=== PATIENT | male | born 1980 | race Caucasian/White ===

== ENCOUNTER 2018-12-24 18:25 | Emergency (ER) | payer SELFPAY ==
[2018-12-24] MEDS ORDERED: LIDOCAINE 1% W/EPI 1:100,000 MDV 50 ML VIAL ONE (19:16)
[2018-12-24] MEDS ORDERED: EPINEPHRINE/PF 1 MG/ML AMP ONE (19:16)
--- NOTE | 2018-12-24 20:12 | ER ---
Nurse's Notes [facility] Name: Jeff Redding II Age: 38 yrs Sex: Male : 1980 Arrival Date: 12/24/2018 Time: 18:28 Bed 30 Private MD: Diagnosis: Left buccal space abscess;Periodontal disease;Gingivitis;Dental caries Presentation: 12/24 18:29 Presenting complaint: Patient states: my face started swelling , but i have a tw2 bad tooth, i dont have insurance so i havent go it taken care of, LEFT lower jaw. Transition of care: patient was not received from another setting of care. Onset of symptoms was December 24, 2018. Risk Assessment: Do you want to hurt yourself or someone else? Patient reports no desire to harm self or others. Initial Sepsis Screen: Does the patient meet any 2 criteria? No. Patient's initial sepsis screen is negative. Does the patient have a suspected source of infection? No. Patient's initial sepsis screen is negative. Care prior to arrival: None. 18:29 Method Of Arrival: Ambulatory tw2 18:29 Acuity: ANDREWS 3 tw2 Triage Assessment: 18:30 General: Appears in no apparent distress. slender, Behavior is calm, cooperative, tw2 appropriate for age. Pain: Complains of pain in mouth and left jaw. Historical: - Allergies: 18:31 No Known Allergies; tw2 - Home Meds: 18:31 None [Active]; tw2 - PMHx: 18:31 Migraines; tw2 - PSHx: 18:31 "ecploratory abdominal SX"; Ear Tubes; tw2 - Immunization history:: Adult Immunizations. - Social history:: Smoking status: . - Ebola Screening: : Patient denies travel to an Ebola-affected area in the 21 days before illness onset. Screenin:31 Abuse screen: Denies threats or abuse. Nutritional screening: No deficits noted. ea Tuberculosis screening: No symptoms or risk factors identified. Fall Risk None identified. Assessment: 19:30 General: Appears in no apparent distress. Behavior is calm, cooperative, appropriate ea for age. Pain: Complains of pain in left jaw. Neuro: Level of Consciousness is awake, alert, obeys commands, Oriented to person, place, time. Cardiovascular: Patient's skin is warm and dry. Respiratory: Airway is patent Respiratory effort is even, unlabored, Respiratory pattern is regular, symmetrical. Derm: Skin is pink, warm \\T\\ dry. 20:14 Reassessment: Patient appears in no apparent distress at this time. Patient is alert, ca1 oriented x 3, equal unlabored respirations, skin warm/dry/pink. Vital Signs: 18:30 BP 134 / 78; Pulse 82; Resp 17; Temp 98.0(TE); Pulse Ox 99% ; Weight 81.65 kg (R); tw2 Height 6 ft. 5 in. (195.58 cm); Pain 4/10; 19:29 BP 120 / 73; Pulse 73; Resp 18; Pulse Ox 100% ; ea 20:14 BP 115 / 71; Pulse 76; Resp 18; Temp 97.5(A); Pulse Ox 100% ; ca1 18:30 Body Mass Index 21.34 (81.65 kg, 195.58 cm) tw2 ED Course: 18:28 Patient arrived in ED. rg4 18:30 Triage completed. tw2 18:30 Arm band placed on. tw2 18:33 Girish Dias, FLORIN is Primary Nurse. ae4 18:51 Sundeep Saxena MD is Attending Physician. ss 19:31 Patient has correct armband on for positive identification. Bed in low position. Call ea light in reach. 19:48 Assist provider with I \\T\\ D: of an abscess on left lower gums Set up I\\T\\D tray. Performed ca 1 by Sundeep Saxena MD Patient tolerated well. 20:21 Patient did not have IV access during this emergency room visit. ca1 Administered Medications: No medications were administered Outcome: 20:11 Discharge ordered by . ps1 20:21 Discharged to home ambulatory, Pt will be picked up from the lobby by mother ca1 20:21 Condition: stable 20:21 Discharge instructions given to patient, Instructed on discharge instructions, follow up and referral plans. medication usage, Demonstrated understanding of instructions, follow-up care, medications, Prescriptions given X 4. 20:22 Patient left the ED. ca1 Signatures: Linnette Vogel RN RN ss Regine Black RN RN tw2 Pily Carpenter rg4 Tequila Bull RN RN ea Singer, Phillip, MD MD ps1 Meri Queen RN RN ca1 Girish Dias, RN RN ae4
--- NOTE | 2018-12-24 20:12 | EDPHYS ---
Physician Documentation [facility] Name: Jeff Redding II Age: 38 yrs Sex: Male : 1980 Arrival Date: 12/24/2018 Time: 18:28 Bed 30 Private MD: ED Physician Sundeep Saxena HPI: 12/24 19:18 This 38 yrs old Male presents to ER via Ambulatory with complaints of Facial ps1 Swelling. 19:18 Patient is c/o left facial swelling that started . States that he had 2 ps1 clindamycin pills left from a previous rx and took them and then 48 hours later the swelling got worse. Patient has been seen and evaluated for same previously. No trismus. Tolerating secretions. Moderate swelling. No drainage up to this point. Patient now informed of local community dentist. . Historical: - Allergies: 18:31 No Known Allergies; tw2 - Home Meds: 18:31 None [Active]; tw2 - PMHx: 18:31 Migraines; tw2 - PSHx: 18:31 "ecploratory abdominal SX"; Ear Tubes; tw2 - Immunization history:: Adult Immunizations. - Social history:: Smoking status: . - Ebola Screening: : Patient denies travel to an Ebola-affected area in the 21 days before illness onset. ROS: 19:18 Constitutional: Negative for fever, chills, and weight loss, Eyes: Negative for injury, ps1 pain, redness, and discharge, Cardiovascular: Negative for chest pain, palpitations, and edema, Respiratory: Negative for shortness of breath, cough, wheezing, and pleuritic chest pain, Abdomen/GI: Negative for abdominal pain, nausea, vomiting, diarrhea, and constipation, MS/Extremity: Negative for injury and deformity, Skin: Negative for injury, rash, and discoloration, Neuro: Negative for headache, weakness, numbness, tingling, and seizure. 19:18 ENT: Positive for dental pain, Gum pain Teeth pain Exam: 19:18 Constitutional: This is a well developed, well nourished patient who is awake, alert, ps1 and in no acute distress. Head/Face: Normocephalic, atraumatic. Eyes: Pupils equal round and reactive to light, extra-ocular motions intact. Lids and lashes normal. Conjunctiva and sclera are non-icteric and not injected. Chest/axilla: Normal chest wall appearance and motion. Nontender with no deformity. No lesions are appreciated. Cardiovascular: Regular rate and rhythm. No gallops, murmurs, or rubs. Normal PMI, no JVD. No pulse deficits. Respiratory: Lungs have equal breath sounds bilaterally, clear to auscultation and percussion. No rales, rhonchi or wheezes noted. No increased work of breathing, no retractions or nasal flaring. Abdomen/GI: Soft, non-tender, with normal bowel sounds. No distension or tympany. No guarding or rebound. No evidence of tenderness throughout. MS/ Extremity: Pulses equal, no cyanosis. Neurovascular intact. Full, normal range of motion. Neuro: Awake and alert, GCS 15, oriented to person, place, time, and situation. Cranial nerves II-XII grossly intact. Sensory grossly intact. Psych: Awake, alert, with orientation to person, place and time. Behavior, mood, and affect are within normal limits. 19:18 ENT: External ear(s): are unremarkable, Nose: is normal, Mouth: Gums: swollen, on the lower left first molar, lower left second bicuspid and lower left first bicuspid. Vital Signs: 18:30 BP 134 / 78; Pulse 82; Resp 17; Temp 98.0(TE); Pulse Ox 99% ; Weight 81.65 kg (R); tw2 Height 6 ft. 5 in. (195.58 cm); Pain 4/10; 19:29 BP 120 / 73; Pulse 73; Resp 18; Pulse Ox 100% ; ea 20:14 BP 115 / 71; Pulse 76; Resp 18; Temp 97.5(A); Pulse Ox 100% ; ca1 18:30 Body Mass Index 21.34 (81.65 kg, 195.58 cm) tw2 Procedures: 20:08 I \\T\\ D: Incision and drainage was performed for an abscess of the left lower left second ps1 bicuspid Anesthetized with IA block, lingual, long buccal. 1% lidocaine with epi. 0.5 marcaine 4ML. Incised with #11 blade. Drained moderate amount purulent fluid. the patient tolerated the procedure well. MDM: 19:05 Patient medically screened. ps1 20:08 Data reviewed: vital signs, nurses notes, and as a result, I will discharge patient. ps1 Counseling: I had a detailed discussion with the patient and/or guardian regarding: the historical points, exam findings, and any diagnostic results supporting the discharge/admit diagnosis, the need for outpatient follow up, a dentist, to return to the emergency department if symptoms worsen or persist or if there are any questions or concerns that arise at home. Administered Medications: No medications were administered Disposition: 12/24/18 20:11 Discharged to Home. Impression: Left buccal space abscess, Periodontal disease, Gingivitis, Dental caries. - Condition is Stable. - Discharge Instructions: Dental Abscess. - Prescriptions for chlorhexidine gluconate 0.12 % Mucous Membrane mouthwash - place 15 milliliter by MUCOUS MEMBRANE route 2 times per day for 14 days after brushing teeth, swish in mouth for 30 seconds then spit out; 1 bottle. Clindamycin HCl 300 mg Oral Capsule - take 1 capsule by ORAL route every 6 hours for 10 days; 40 capsule. Tylenol- Codeine #3 300-30 mg Oral Tablet - take 2 tablet by ORAL route every 6 hours As needed; 30 tablet. Zofran 4 mg Oral Tablet - take 1 tablet by ORAL route every 12 hours As needed; 20 tablet. - Medication Reconciliation Form, Thank You Letter, Antibiotic Education, Prescription Opioid Use form. - Follow up: Emergency Department; When: As needed; Reason: Fever > 102 F, Worsening of condition. Follow up: Private Physician; When: As needed; Reason: Further diagnostic work-up, Recheck today's complaints, Continuance of care, Re-evaluation by your physician. - Problem is new. - Symptoms have improved. Signatures: Regine Black RN RN tw2 Sundeep Saxena MD MD ps1 Meri Queen RN RN ca1 Corrections: (The following items were deleted from the chart) 20:22 20:11 12/24/2018 20:11 Discharged to Home. Impression: Left buccal space abscess; ca1 Periodontal disease; Gingivitis; Dental caries. Condition is Stable. Forms are Medication Reconciliation Form, Thank You Letter, Antibiotic Education, Prescription Opioid Use. Follow up: Emergency Department; When: As needed; Reason: Fever > 102 F, Worsening of condition. Follow up: Private Physician; When: As needed; Reason: Further diagnostic work-up, Recheck today's complaints, Continuance of care, Re-evaluation by your physician. Problem is new. Symptoms have improved. ps1
== END 2018-12-24 20:22 | disposition home or self-care (01) ==
LOC: ER 18:25
DX: K12.2 Cellulitis and abscess of mouth (principal); K05.6 Periodontal disease, unspecified; K05.10 Chronic gingivitis, plaque induced; K02.9 Dental caries, unspecified
CPT/HCPCS: 99283; J0171

== ENCOUNTER 2019-01-11 13:00 | Emergency (ER) | payer SELFPAY ==
[2019-01-11 13:56] LABS: Absolute Lymphocytes (CBC) 1.1 K/uL (0.7-4.9); Basophils % 0.4 % (0-1.3); Eosinophils % 5.9 % (0-4.4); Hematocrit 45.8 % (39.6-49.0); Lymphocytes % 16.9 % (15.3-44.8); MPV 7.8 fL (7.6-11.3); Monocytes % 6.2 % (3.3-12.3); RBC Red Blood Cell Count 4.74 M/uL (4.33-5.43)
[2019-01-11 14:06] LABS: Albumin 4.3 g/dL (3.4-5.0); Bilirubin Direct 0.1 mg/dL (0-0.2); Bilirubin Total 0.5 mg/dL (0.2-1.0); Potassium 4.1 mmol/L (3.5-5.1)
--- NOTE | 2019-01-11 15:30 | RAD REPORT ---
EXAM DESCRIPTION: CT - Abdomen Pelvis W Contrast - 01/11/2019 2:55 pm CLINICAL HISTORY: Abdominal pain. Right flank pain COMPARISON: None. TECHNIQUE: Computed axial tomography of the abdomen and pelvis was obtained. 100 cc Isovue-300 is ad ministered intravenously. Oral contrast was given. All CT scans are performed using dose optimization technique as appropriate and may include automated exposure control or mA/KV adjustment according to patient size. FINDINGS: A 1 millimeter nonobstructing right renal calculus The liver, spleen, pancreas, adrenals and left kidney appear unremarkable. The appendix is normal caliber. There is no evidence of diverticulitis IMPRESSION: A 1 millimeter nonobstructing right renal calculus
--- NOTE | 2019-01-11 15:34 | EDPHYS ---
Physician Documentation [facility] Name: Jeff Redding II Age: 38 yrs Sex: Male : 1980 Arrival Date: 01/11/2019 Time: 13:01 Bed 30 Private MD: ED Physician Zelalem Cohen HPI: 01/11 13:27 This 38 yrs old Male presents to ER via Unassigned with complaints of kb Abdominal Pain, Back Pain. 13:27 The patient presents with abdominal pain right lower quadrant. Onset: The kb symptoms/episode began/occurred yesterday. The symptoms radiate to Associated signs and symptoms: Pertinent positives: diarrhea, Pertinent negatives: nausea and vomiting, fever. The symptoms are described as constant. Modifying factors: The symptoms are alleviated by nothing, the symptoms are aggravated by nothing. Severity of pain: At its worst the pain was moderate in the emergency department the pain is unchanged. The patient has not experienced similar symptoms in the past. The patient has not recently seen a physician. Historical: - Allergies: 13:06 No Known Allergies; aj - PMHx: 13:40 Migraines; ca1 - PSHx: 13:40 "ecploratory abdominal SX"; Ear Tubes; ca1 - Immunization history:: Adult Immunizations up to date. - Social history:: Smoking status: Patient/guardian denies using tobacco. - Ebola Screening: : Patient negative for fever greater than or equal to 101.5 degrees Fahrenheit, and additional compatible Ebola Virus Disease symptoms Patient denies exposure to infectious person Patient denies travel to an Ebola-affected area in the 21 days before illness onset. ROS: 13:26 Constitutional: Negative for fever, chills, and weight loss, Cardiovascular: Negative kb for chest pain, palpitations, and edema, Respiratory: Negative for shortness of breath, cough, wheezing, and pleuritic chest pain, Back: Negative for injury and pain, : Negative for injury, bleeding, discharge, and swelling, MS/Extremity: Negative for injury and deformity, Skin: Negative for injury, rash, and discoloration, Neuro: Negative for headache, weakness, numbness, tingling, and seizure. 13:26 Abdomen/GI: Positive for abdominal pain, diarrhea, Negative for nausea and vomiting. Exam: 13:26 Constitutional: This is a well developed, well nourished patient who is awake, alert, kb and in no acute distress. Head/Face: Normocephalic, atraumatic. Neck: Trachea midline, no thyromegaly or masses palpated, and no cervical lymphadenopathy. Supple, full range of motion without nuchal rigidity, or vertebral point tenderness. No Meningismus. Chest/axilla: Normal chest wall appearance and motion. Nontender with no deformity. No lesions are appreciated. Cardiovascular: Regular rate and rhythm with a normal S1 and S2. No gallops, murmurs, or rubs. Normal PMI, no JVD. No pulse deficits. Respiratory: Lungs have equal breath sounds bilaterally, clear to auscultation and percussion. No rales, rhonchi or wheezes noted. No increased work of breathing, no retractions or nasal flaring. Back: No spinal tenderness. No costovertebral tenderness. Full range of motion. Skin: Warm, dry with normal turgor. Normal color with no rashes, no lesions, and no evidence of cellulitis. MS/ Extremity: Pulses equal, no cyanosis. Neurovascular intact. Full, normal range of motion. Neuro: Awake and alert, GCS 15, oriented to person, place, time, and situation. Cranial nerves II-XII grossly intact. Motor strength 5/5 in all extremities. Sensory grossly intact. Cerebellar exam normal. Normal gait. 13:26 Abdomen/GI: Inspection: abdomen appears normal, Bowel sounds: normal, in all quadrants, Palpation: soft, in all quadrants, mild abdominal tenderness, in the right upper quadrant, moderate abdominal tenderness, in the right lower quadrant. Vital Signs: 13:06 BP 105 / 69; Pulse 91; Resp 18; Temp 99.0; Pulse Ox 96% on R/A; Weight 77.11 kg; Height aj 6 ft. 5 in. (195.58 cm); 14:15 BP 113 / 76; Pulse 60; Resp 17; Pulse Ox 98% on R/A; ca1 15:07 BP 118 / 80; Pulse 68; Resp 19 S; Pulse Ox 98% on R/A; ca1 15:40 BP 114 / 76; Pulse 62; Resp 16; Temp 98.7(O); Pulse Ox 99% on R/A; ca1 13:06 Body Mass Index 20.16 (77.11 kg, 195.58 cm) cheryl MDM: 13:08 Patient medically screened. kb 13:27 Data reviewed: vital signs, nurses notes. Data interpreted: Pulse oximetry: on room air kb is 96 %. Interpretation: normal. 15:32 Counseling: I had a detailed discussion with the patient and/or guardian regarding: the kb historical points, exam findings, and any diagnostic results supporting the discharge/admit diagnosis, lab results, radiology results, the need for outpatient follow up, a urologist, to return to the emergency department if symptoms worsen or persist or if there are any questions or concerns that arise at home. 01/11 13:16 Order name: Basic Metabolic Panel; Complete Time: 14:11 kb 01/11 13:16 Order name: CBC with Diff; Complete Time: 14:03 kb 01/11 13:16 Order name: Hepatic Function; Complete Time: 14:11 kb 01/11 13:16 Order name: Lipase; Complete Time: 14:11 kb 01/11 13:16 Order name: IV Saline Lock; Complete Time: 13:30 kb 01/11 13:16 Order name: CT Abd/Pelvis - PO and IV Contrast; Complete Time: 15:32 kb 01/11 13:16 Order name: Labs collected and sent; Complete Time: 13:31 kb Administered Medications: No medications were administered Disposition: 17:18 Co-signature as Attending Physician, Zelalem Cohen MD I agree with the assessment and kdr plan of care. Disposition: 01/11/19 15:33 Discharged to Home. Impression: Lower abdominal pain, unspecified, Calculus of kidney. - Condition is Stable. - Discharge Instructions: Kidney Stones, [id number], Abdominal Pain, Adult, [id number]. - Prescriptions for Diclofenac Sodium 75 mg Oral Tablet, Delayed Release (E.C.) - take 1 tablet by ORAL route 2 times per day As needed; 30 tablet. - Medication Reconciliation Form, Thank You Letter, Antibiotic Education, Prescription Opioid Use, Work release form form. - Follow up: Emergency Department; When: As needed; Reason: Worsening of condition. Follow up: Private Physician; When: 2 - 3 days; Reason: Recheck today's complaints, Continuance of care, Re-evaluation by your physician. Signatures: Dispatcher [employer] Cathy Gama, BINDERY LIBRARY TECHNICAL ASSISTANT-C BINDERY LIBRARY TECHNICAL ASSISTANT-Domitila Mejia RN RN Zelalem Cleary MD MD kdr Meri Queen RN RN ca1 Corrections: (The following items were deleted from the chart) 15:44 15:33 01/11/2019 15:33 Discharged to Home. Impression: Lower abdominal pain, ca1 unspecified; Calculus of kidney. Condition is Stable. Forms are Medication Reconciliation Form, Thank You Letter, Antibiotic Education, Prescription Opioid Use. Follow up: Emergency Department; When: As needed; Reason: Worsening of condition. Follow up: Private Physician; When: 2 - 3 days; Reason: Recheck today's complaints, Continuance of care, Re-evaluation by your physician. kb
--- NOTE | 2019-01-11 15:34 | ER ---
Nurse's Notes [facility] Name: Jeff Redding II Age: 38 yrs Sex: Male : 1980 Arrival Date: 01/11/2019 Time: 13:01 Bed 30 Private MD: Diagnosis: Lower abdominal pain, unspecified;Calculus of kidney Presentation: 01/11 13:05 Presenting complaint: Patient states: Right flank pain that radiates to back for 2 aj days. Care prior to arrival: None. 13:05 Acuity: ANDREWS 3 aj 13:15 Risk Assessment: Do you want to hurt yourself or someone else? Patient reports no ca1 desire to harm self or others. 13:15 Transition of care: patient was not received from another setting of care. Onset of ca1 symptoms was January 11, 2019. Initial Sepsis Screen: Does the patient meet any 2 criteria? No. Patient's initial sepsis screen is negative. Does the patient have a suspected source of infection? No. Patient's initial sepsis screen is negative. 13:15 Method Of Arrival: Ambulatory ca1 Triage Assessment: 13:06 General: Appears in no apparent distress. comfortable, Behavior is calm, cooperative, aj appropriate for age. Pain: Complains of pain in low back area, mid back area and posterior aspect of right lateral abdomen. Neuro: Level of Consciousness is awake, alert, obeys commands, Oriented to person, place, time, situation, Appropriate for age. Respiratory: Airway is patent Respiratory effort is even, unlabored, Respiratory pattern is regular, symmetrical. GI: Abdomen is flat, non-distended. : Reports pain in right flank(s), in lower back. Historical: - Allergies: 13:06 No Known Allergies; aj - PMHx: 13:40 Migraines; ca1 - PSHx: 13:40 "ecploratory abdominal SX"; Ear Tubes; ca1 - Immunization history:: Adult Immunizations up to date. - Social history:: Smoking status: Patient/guardian denies using tobacco. - Ebola Screening: : Patient negative for fever greater than or equal to 101.5 degrees Fahrenheit, and additional compatible Ebola Virus Disease symptoms Patient denies exposure to infectious person Patient denies travel to an Ebola-affected area in the 21 days before illness onset. Screenin:15 Abuse screen: Denies threats or abuse. Denies injuries from another. Nutritional ca1 screening: No deficits noted. Tuberculosis screening: No symptoms or risk factors identified. Fall Risk IV access (20 points). Assessment: 13:15 General: Appears in no apparent distress. comfortable, Behavior is calm, cooperative, ca1 appropriate for age. Pain: Complains of pain in right lower quadrant and right upper quadrant and posterior aspect of right lateral abdomen Pain radiates to back and mid back area and low back area Pain currently is 4 out of 10 on a pain scale. Quality of pain is described as sharp, Pain began 1 day ago. Is intermittent. Neuro: Level of Consciousness is awake, alert, obeys commands, Oriented to person, place, time, situation. Cardiovascular: Heart tones S1 S2 present Capillary refill < 3 seconds Patient's skin is warm and dry. Respiratory: Airway is patent Respiratory effort is even, unlabored, Respiratory pattern is regular, symmetrical, Breath sounds are clear bilaterally. GI: Abdomen is flat, non-distended, Bowel sounds present X 4 quads. Abd is soft X 4 quads Abdomen is tender to palpation in right lower quadrant and left lower quadrant. GI: Reports diarrhea, since 4 DAYS AGO. : No deficits noted. No signs and/or symptoms were reported regarding the genitourinary system. EENT: No deficits noted. No signs and/or symptoms were reported regarding the EENT system. Derm: Skin is intact, is healthy with good turgor, Skin is pink, warm \\T\\ dry. Musculoskeletal: Circulation, motion, and sensation intact. Capillary refill < 3 seconds, Range of motion: intact in all extremities. 14:23 Reassessment: Patient appears in no apparent distress at this time. Patient and/or ca1 family updated on plan of care and expected duration. Pain level reassessed. Patient is alert, oriented x 3, equal unlabored respirations, skin warm/dry/pink. Pending CT scan with contrast - oral. 15:07 Reassessment: Patient appears in no apparent distress at this time. Patient is alert, ca1 oriented x 3, equal unlabored respirations, skin warm/dry/pink. Pt from CT scan. 15:43 Reassessment: Patient appears in no apparent distress at this time. Patient is alert, ca1 oriented x 3, equal unlabored respirations, skin warm/dry/pink. Vital Signs: 13:06 BP 105 / 69; Pulse 91; Resp 18; Temp 99.0; Pulse Ox 96% on R/A; Weight 77.11 kg; Height aj 6 ft. 5 in. (195.58 cm); 14:15 BP 113 / 76; Pulse 60; Resp 17; Pulse Ox 98% on R/A; ca1 15:07 BP 118 / 80; Pulse 68; Resp 19 S; Pulse Ox 98% on R/A; ca1 15:40 BP 114 / 76; Pulse 62; Resp 16; Temp 98.7(O); Pulse Ox 99% on R/A; ca1 13:06 Body Mass Index 20.16 (77.11 kg, 195.58 cm) aj ED Course: 13:01 Patient arrived in ED. as 13:06 Triage completed. aj 13:06 Arm band placed on right wrist. Patient placed in an exam room. aj 13:07 Meri Queen, RN is Primary Nurse. ca1 13:07 Cathy Weldon FNP-C is PHCP. kb 13:07 Zelalem Cohen MD is Attending Physician. kb 13:15 Patient has correct armband on for positive identification. Placed in gown. Bed in low ca1 position. Call light in reach. Side rails up X 1. Pulse ox on. NIBP on. Warm blanket given. 13:15 No provider procedures requiring assistance completed. ca1 13:30 Initial lab(s) drawn, by me, sent to lab. Inserted saline lock: 20 gauge in right lt1 antecubital area, using aseptic technique. 14:57 CT Abd/Pelvis - PO and IV Contrast In Process Unspecified. EDMS 15:42 IV discontinued, intact, bleeding controlled, No redness/swelling at site. Pressure ca1 dressing applied. Administered Medications: No medications were administered Outcome: 15:33 Discharge ordered by . kb 15:42 Discharged to home ambulatory. ca1 15:42 Condition: stable 15:42 Discharge instructions given to patient, Instructed on discharge instructions, follow up and referral plans. medication usage, Demonstrated understanding of instructions, follow-up care, medications, Prescriptions given X 1. 15:44 Patient left the ED. ca1 Signatures: Dispatcher [employer] EDMS Cathy Weldon FNP-C FNP-Ckb Myers, Amanda, RN RN aj Martinez, Amelia as Acob, Meri, RN RN ca1 Barry, Benita lt1
== END 2019-01-11 15:44 | disposition home or self-care (01) ==
LOC: ER 13:00
DX: N20.0 Calculus of kidney (principal)
CPT/HCPCS: 36415; 74177; 80048; 80076; 83690; 85025; 99284; Q9967

== ENCOUNTER 2020-10-09 09:15 | Emergency (ER) | payer SELFPAY ==
--- NOTE | 2020-10-09 10:01 | ER ---
Nurse's Notes [facility] Name: Jeff Redding II Age: 40 yrs Sex: Male : 1980 Arrival Date: 10/09/2020 Time: 09:18 Bed 24 Private MD: Diagnosis: Allergic contact dermatitis due to plants, except food Presentation: 10/09 09:24 Chief complaint: Patient states: Poison Mehnaz all over body that began 2-3 days ago after ss doing yard work. Pt is concerned because he is having some swelling to his groin area. Coronavirus screen: Client denies travel out of the [place] in the last 14 days. Ebola Screen: Patient denies exposure to infectious person. Patient denies travel to an Ebola-affected area in the 21 days before illness onset. Onset: The symptoms/episode began/occurred 3 day(s) ago. Anaphylaxis evaluation, no signs or symptoms of anaphylaxis were noted. Initial Sepsis Screen: Does the patient meet any 2 criteria? No. Patient's initial sepsis screen is negative. Does the patient have a suspected source of infection? No. Patient's initial sepsis screen is negative. Risk Assessment: Do you want to hurt yourself or someone else? Patient reports no desire to harm self or others. Onset of symptoms was October 06, 2020. 09:24 Method Of Arrival: Ambulatory ss 09:24 Acuity: ANDREWS 4 ss Historical: - Allergies: 09:27 No Known Allergies; ss - PMHx: 09:27 Migraines; ss - PSHx: :27 "exploratory abdominal SX"; Ear Tubes; ss - Immunization history:: Adult Immunizations up to date. - Social history:: Smoking status: Patient reports the use of cigarette tobacco products, denies chronic smoking, but will smoke occasionally. Screenin:24 Abuse screen: Denies threats or abuse. Denies injuries from another. Nutritional ss screening: No deficits noted. Tuberculosis screening: Never had TB. Fall Risk None identified. Assessment: 09:24 General: Appears in no apparent distress. comfortable, Behavior is cooperative, ss talkative. Pain: Denies pain. Neuro: Level of Consciousness is awake, alert, obeys commands, Oriented to person, place, time, situation. Cardiovascular: Capillary refill < 3 seconds is brisk in bilateral fingers. Respiratory: Airway is patent Respiratory effort is even, unlabored, Respiratory pattern is regular, symmetrical, Breath sounds are clear bilaterally. GI: Patient currently denies diarrhea, nausea, vomiting. EENT: Nares are clear. Derm: Skin is dry, Skin is red, Skin temperature is warm Rash noted that is red, on left eye, right arm, left arm, right leg and left leg. Musculoskeletal: Circulation, motion, and sensation intact. Range of motion: intact in all extremities, Swelling absent. 10:20 Reassessment: Patient appears in no apparent distress at this time. Patient and/or ss family updated on plan of care and expected duration. Pain level reassessed. Patient is alert, oriented x 3, equal unlabored respirations, skin warm/dry/pink. Vital Signs: 09:24 BP 120 / 84; Pulse 89; Resp 16; Temp 98.1(TE); Pulse Ox 99% on R/A; Weight 83.01 kg; ss Height 6 ft. 5 in. (195.58 cm); Pain 0/10; 09:24 Body Mass Index 21.70 (83.01 kg, 195.58 cm) ss ED Course: 09:18 Patient arrived in ED. am2 09:24 Patient has correct armband on for positive identification. ss 09:26 Triage completed. ss 09:27 Arm band placed on right wrist. ss 09:37 Cathy Weldon [facility]C [facility]. kb 09:37 Zelalem Cohen MD is Attending Physician. kb 09:53 Linnette Vogel, FLORIN is Primary Nurse. ss 10:20 No provider procedures requiring assistance completed. Patient did not have IV access ss during this emergency room visit. Administered Medications: 10:03 Drug: SOLU-Medrol 125 mg Route: IM; Site: right gluteus; ss 10:20 Follow up: Response: No adverse reaction; Medication administered at discharge. ss 10:04 Drug: Pepcid 20 mg Route: PO; ss 10:20 Follow up: Response: No adverse reaction ss Outcome: 10:00 Discharge ordered by . kb 10:20 Discharged to home ambulatory. ss 10:20 Condition: good 10:20 Discharge instructions given to patient, Instructed on discharge instructions, follow up and referral plans. medication usage, Demonstrated understanding of instructions, follow-up care, medications, Prescriptions given X 2. 10:21 Patient left the ED. ss Signatures: Cathy Weldon, Linnette Quintana, FLORIN RN ss Domitila Silva am2 Corrections: (The following items were deleted from the chart) 09:28 09:27 Social history: Smoking status: Patient denies any tobacco usage or history of. ssss
--- NOTE | 2020-10-09 10:01 | EDPHYS ---
Physician Documentation [facility] Name: Jeff Redding II Age: 40 yrs Sex: Male : 1980 Arrival Date: 10/09/2020 Time: 09:18 Bed 24 Private MD: ED Physician Zelalem Cohen HPI: 10/09 10:15 This 40 yrs old Male presents to ER via Ambulatory with complaints of Rash, kb Allergic Reaction. 10:15 The patient's rash thought to be caused by Contact allergy. The rash is located on the kb groin, right arm, left arm, right leg and left leg. The rash can be described as papular. Onset: The symptoms/episode began/occurred 3 day(s) ago. Associated signs and symptoms: Pertinent positives: itching. Severity of symptoms: At their worst the symptoms were moderate in the emergency department the symptoms are unchanged. Treatment given at home: OTC lotion/cream. The patient has not experienced similar symptoms in the past. The patient has not recently seen a physician. Pt reports he mowed the grass on Wednesday and developed a rash to arms. States it spread to his legs and penis after that. Reports itching. . Historical: - Allergies: 09: No Known Allergies; ss - PMHx: : Migraines; ss - PSHx: : "exploratory abdominal SX"; Ear Tubes; ss - Immunization history:: Adult Immunizations up to date. - Social history:: Smoking status: Patient reports the use of cigarette tobacco products, denies chronic smoking, but will smoke occasionally. ROS: 10:16 Constitutional: Negative for fever, chills, and weight loss, MS/Extremity: Negative for kb injury and deformity, Neuro: Negative for headache, weakness, numbness, tingling, and seizure. 10:16 Skin: Positive for rash, of the right arm, left arm, right leg and left leg and groin. Exam: 10:16 Constitutional: This is a well developed, well nourished patient who is awake, alert, kb and in no acute distress. Head/Face: Normocephalic, atraumatic. MS/ Extremity: Pulses equal, no cyanosis. Neurovascular intact. Full, normal range of motion. Neuro: Awake and alert, GCS 15, oriented to person, place, time, and situation. Moves all extremities. Normal gait. 10:16 : Male external genitalia: swelling, penile, that is mild, and rash. 10:16 Skin: rash a moderate rash is noted, consistent with contact dermatitis, on the right arm, left arm, right leg and left leg and groin. Vital Signs: 09:24 BP 120 / 84; Pulse 89; Resp 16; Temp 98.1(TE); Pulse Ox 99% on R/A; Weight 83.01 kg; ss Height 6 ft. 5 in. (195.58 cm); Pain 0/10; 09:24 Body Mass Index 21.70 (83.01 kg, 195.58 cm) ss MDM: 09:37 Patient medically screened. kb 10:14 Data reviewed: vital signs, nurses notes. Data interpreted: Pulse oximetry: on room air kb is 99 %. Interpretation: normal. Counseling: I had a detailed discussion with the patient and/or guardian regarding: the historical points, exam findings, and any diagnostic results supporting the discharge/admit diagnosis, the need for outpatient follow up, a family practitioner, to return to the emergency department if symptoms worsen or persist or if there are any questions or concerns that arise at home. Administered Medications: 10:03 Drug: SOLU-Medrol 125 mg Route: IM; Site: right gluteus; ss 10:20 Follow up: Response: No adverse reaction; Medication administered at discharge. ss 10:04 Drug: Pepcid 20 mg Route: PO; ss 10:20 Follow up: Response: No adverse reaction ss Disposition: 14:09 Co-signature as Attending Physician, Zelalem Cohen MD. kdr Disposition: 10/09/20 10:00 Discharged to Home. Impression: Allergic contact dermatitis due to plants, except food. - Condition is Stable. - Discharge Instructions: Poison Mehnaz Dermatitis, [id number], Contact Dermatitis, [id number]. - Prescriptions for Pepcid 20 mg Oral Tablet - take 1 tablet by ORAL route every 12 hours for 5 days; 10 tablet. Prednisone 20 mg Oral Tablet - take 1 tablet by ORAL route once daily for 5 days; 5 tablet. - Medication Reconciliation Form, Thank You Letter, Antibiotic Education, Prescription Opioid Use form. - Follow up: Emergency Department; When: As needed; Reason: Worsening of condition. Follow up: Private Physician; When: 2 - 3 days; Reason: Recheck today's complaints, Continuance of care, Re-evaluation by your physician. Signatures: Cathy Weldon, LUCIO DALY-Zelalem Rivas MD MD [facility] Linnette Vogel RN RN ss Corrections: (The following items were deleted from the chart) 09:28 09:27 Social history: Smoking status: Patient denies any tobacco usage or history of. ssss 10:21 10:00 10/09/2020 10:00 Discharged to Home. Impression: Allergic contact dermatitis due ss to plants, except food. Condition is Stable. Forms are Medication Reconciliation Form, Thank You Letter, Antibiotic Education, Prescription Opioid Use. Follow up: Emergency Department; When: As needed; Reason: Worsening of condition. Follow up: Private Physician; When: 2 - 3 days; Reason: Recheck today's complaints, Continuance of care, Re-evaluation by your physician. kb
[2020-10-09] MEDS ORDERED: METHYLPREDNISOLONE 125 MG INJ ONE (10:13)
[2020-10-09] MEDS ORDERED: FAMOTIDINE 20 MG TAB ONE (10:13)
[2020-10-09 10:26] VITALS: BP 120/84; TEMP 98.1; O2SAT 99
== END 2020-10-09 10:21 | disposition home or self-care (01) ==
LOC: ER 09:15
DX: L23.7 Allergic contact dermatitis due to plants, except food (principal); F17.210 Nicotine dependence, cigarettes, uncomplicated
CPT/HCPCS: 96372; 99283; J2930

== ENCOUNTER 2021-01-28 13:41 | Emergency (ER) | payer SELFPAY ==
--- NOTE | 2021-01-28 14:21 | ER ---
Nurse's Notes [facility] Name: Jeff Redding II Age: 40 yrs Sex: Male : 1980 Arrival Date: 01/28/2021 Time: 13:43 Bed 16 Private MD: Diagnosis: Periapical abscess without sinus Presentation: 01/28 13:58 Chief complaint: Left lower jaw pain and swelling x 1 week. Reports 2 missing crowns to left lower molars. Coronavirus screen: At this time, the client does not indicate any symptoms associated with coronavirus-19. Ebola Screen: No symptoms or risks identified at this time. Initial Sepsis Screen: Does the patient meet any 2 criteria? HR > 90 bpm. No. Patient's initial sepsis screen is negative. Does the patient have a suspected source of infection? Yes:. Risk Assessment: Do you want to hurt yourself or someone else? Patient reports no desire to harm self or others. Onset of symptoms was January 21, 2021. 13:58 Method Of Arrival: Ambulatory 13:58 Acuity: ANDREWS 3 hb Historical: - Allergies: 14:01 No Known Drug Allergies; hb - PMHx: 14:01 Migraines; hb - Immunization history:: Adult Immunizations up to date. - Social history:: Smoking status: Patient reports the use of cigarette tobacco products, smokes one-half pack cigarettes per day. Screenin:17 Abuse screen: Denies threats or abuse. Denies injuries from another. Nutritional tr6 screening: No deficits noted. Tuberculosis screening: No symptoms or risk factors identified. Fall Risk None identified. Assessment: 14:17 General: Appears in no apparent distress. comfortable, Behavior is calm, cooperative, tr6 appropriate for age, anxious. Pain: Complains of pain in left buccal mucosa Pain does not radiate. Pain currently is 8 out of 10 on a pain scale. Quality of pain is described as throbbing, Pain began 2-3 days ago. Is continuous. Neuro: Level of Consciousness is awake, alert, obeys commands, Oriented to person, place, time, situation. Cardiovascular: Capillary refill < 3 seconds Patient's skin is warm and dry. Respiratory: Airway is patent Respiratory effort is even, unlabored, Respiratory pattern is regular, symmetrical. GI: Abdomen is flat, non-distended. : No signs and/or symptoms were reported regarding the genitourinary system. EENT: Reports pain in left buccal mucosa. Derm: No signs and/or symptoms reported regarding the dermatologic system. Musculoskeletal: No signs and/or symptoms reported regarding the musculoskeletal system. Vital Signs: 13:58 BP 125 / 79; Pulse 102; Resp 16; Temp 98.2; Pulse Ox 100% on R/A; Weight 84.82 kg; hb Height 6 ft. 5 in. (195.58 cm); Pain 7/10; 14:17 BP 116 / 81; Pulse 89; Resp 18; Pulse Ox 100% ; tr6 13:58 Body Mass Index 22.17 (84.82 kg, 195.58 cm) hb ED Course: 13:43 Patient arrived in ED. as 13:57 Danis Stovall NP is PHCP. pm1 13:57 Alcides Ahn MD is Attending Physician. pm1 13:59 Triage completed. hb 14:01 Arm band placed on. hb 14:17 Patient has correct armband on for positive identification. Bed in low position. Call tr6 light in reach. Side rails up X2. Pulse ox on. NIBP on. 14:17 No provider procedures requiring assistance completed. Patient did not have IV access tr6 during this emergency room visit. 14:31 Lucy Metz, FLORIN is Primary Nurse. tr6 Administered Medications: 14:16 Drug: Ketorolac 60 mg Route: IM; Site: right gluteus; tr6 14:16 Follow up: Response: No adverse reaction tr6 14:16 Drug: Clindamycin 600 mg Route: IM; Site: left gluteus; tr6 14:16 Follow up: Response: No adverse reaction tr6 Outcome: 14:20 Discharge ordered by . pm1 14:31 Discharged to home ambulatory. tr6 14:31 Condition: stable 14:31 Discharge instructions given to patient, Instructed on discharge instructions, follow up and referral plans. medication usage, Demonstrated understanding of instructions, follow-up care, medications. 14:32 Patient left the ED. tr6 Signatures: Catalina Augustin as Danis Stovall NP [employer]CH[employer]ICIAN pm1 Mery Minor RN RN Lucy Metz RN RN tr6
--- NOTE | 2021-01-28 14:21 | EDPHYS ---
Physician Documentation [facility] Name: Jeff Redding II Age: 40 yrs Sex: Male : 1980 Arrival Date: 01/28/2021 Time: 13:43 Bed 16 Private MD: ED Physician Alcides Ahn HPI: 01/28 14:06 This 40 yrs old Male presents to ER via Ambulatory with complaints of Dental pm1 pain. 14:06 The patient presents with pain. The problem is located in the lower left second molar pm1 and lower left first molar. Onset: The symptoms/episode began/occurred crowns lost about a year ago. On and off dental pain. Current dental pain for 1 week. Modifying factors: The symptoms are alleviated by nothing, the symptoms are aggravated by food. Associated signs and symptoms: Pertinent negatives: dysphagia, fever, inability to eat, nausea, vomiting. Severity of symptoms: in the emergency department the symptoms are actually worse. The patient has experienced similar episodes in the past, multiple times. The patient has not recently seen a physician. Historical: - Allergies: 14:01 No Known Drug Allergies; hb - PMHx: 14:01 Migraines; hb - Immunization history:: Adult Immunizations up to date. - Social history:: Smoking status: Patient reports the use of cigarette tobacco products, smokes one-half pack cigarettes per day. ROS: 14:06 Constitutional: Negative for fever, chills, and weight loss. pm1 14:06 Neck: Negative for injury, pain, and swelling, Cardiovascular: Negative for chest pain, palpitations, and edema, Respiratory: Negative for shortness of breath, cough, wheezing, and pleuritic chest pain, Skin: Negative for injury, rash, and discoloration, Neuro: Negative for headache, weakness, numbness, tingling, and seizure. 14:06 ENT: Positive for dental pain, difficulty swallowing, ear pain, sore throat. 14:06 All other systems are negative. Exam: 14:06 Constitutional: This is a well developed, well nourished patient who is awake, alert, pm1 and in no acute distress. Head/Face: Normocephalic, atraumatic. 14:06 Skin: Warm, dry with normal turgor. Normal color with no rashes, no lesions, and no evidence of cellulitis. MS/ Extremity: Pulses equal, no cyanosis. Neurovascular intact. Full, normal range of motion. 14:06 Eyes: Exam is negative for acute changes, Periorbital structures: appear normal, Extraocular movements: intact throughout. 14:06 ENT: Mouth: Lips: normal, Oral mucosa: normal, pink and intact, moist, Gums: normal with healthy appearance, Posterior pharynx: no acute changes, Airway: no evidence of obstruction, patent, Tonsils: are normal in appearance, no enlargement, no erythema, no exudate, pooling of secretions, is not appreciated, Dental exam: dental caries, that is moderate, specifically in the lower left second molar (#18) and lower left first molar (#19), gum swelling, not appreciated, Voice: no acute changes, No trismus. Mild swelling present to left mandible. 14:06 Neck: Exam negative for External neck: ROM/movement: is normal, is supple, without pain. 14:06 Cardiovascular: Rate: normal, Rhythm: regular, Pulses: no pulse deficits are appreciated. 14:06 Respiratory: Exam negative for acute changes, respiratory distress, shortness of breath. 14:06 Neuro: Exam negative for acute changes, Orientation: is normal, Mentation: is normal, Motor: is normal, moves all fours. Vital Signs: 13:58 BP 125 / 79; Pulse 102; Resp 16; Temp 98.2; Pulse Ox 100% on R/A; Weight 84.82 kg; hb Height 6 ft. 5 in. (195.58 cm); Pain 7/10; 14:17 BP 116 / 81; Pulse 89; Resp 18; Pulse Ox 100% ; tr6 13:58 Body Mass Index 22.17 (84.82 kg, 195.58 cm) hb MDM: 13:58 Patient medically screened. pm1 14:06 Data reviewed: vital signs. Data interpreted: Pulse oximetry: on room air is 100 %. pm1 Interpretation: normal. Counseling: I had a detailed discussion with the patient and/or guardian regarding: the historical points, exam findings, and any diagnostic results supporting the discharge/admit diagnosis, the need for outpatient follow up, for definitive care, a dentist, to return to the emergency department if symptoms worsen or persist or if there are any questions or concerns that arise at home. Administered Medications: 14:16 Drug: Ketorolac 60 mg Route: IM; Site: right gluteus; tr6 14:16 Follow up: Response: No adverse reaction tr6 14:16 Drug: Clindamycin 600 mg Route: IM; Site: left gluteus; tr6 14:16 Follow up: Response: No adverse reaction tr6 Disposition: 18:40 Co-signature as Attending Physician, Alcides Ahn MD. rn Disposition Summary: 01/28/21 14:20 Discharge Ordered Location: Home pm1 Problem: new pm1 Symptoms: have improved pm1 Condition: Stable pm1 Diagnosis - Periapical abscess without sinus pm1 Followup: pm1 - With: Emergency Department - When: As needed - Reason: Worsening of condition Followup: pm1 - With: Private Physician - When: 2 - 3 days - Reason: Recheck today's complaints, Continuance of care, Re-evaluation by your physician Discharge Instructions: - Discharge Summary Sheet pm1 - Dental Abscess pm1 - Dental Pain pm1 - Diet and Dental Disease pm1 Forms: - Medication Reconciliation Form pm1 - Thank You Letter pm1 - Antibiotic Education pm1 - Prescription Opioid Use pm1 Prescriptions: - Clindamycin HCl 300 mg Oral Capsule - take 1 capsule by ORAL route every 6 hours for 10 days; 40 capsule; Refills: 0, pm1 Product Selection Permitted - Diclofenac Sodium 75 mg Oral tablet,delayed release (DR/EC) - take 1 tablet by ORAL route 2 times per day As needed; 30 tablet; Refills: 0, pm1 Product Selection Permitted Signatures: Alcides Ahn MD MD rn Marinas, Patrick, NP NP pm1 Mery Minor RN RN hb Ramnanan, Tiffany, RN RN tr6
[2021-01-28] MEDS ORDERED: KETOROLAC 30 MG/ML INJ ONE (14:32)
[2021-01-28] MEDS ORDERED: CLINDAMYCIN IV 150 MG/ML (4 mL) VIAL ONE (14:32)
[2021-01-28 14:36] VITALS: TEMP 98.2; O2SAT 100
[2021-01-28 14:37] VITALS: BP 116/81
== END 2021-01-28 14:32 | disposition home or self-care (01) ==
LOC: ER 13:41
DX: K04.7 Periapical abscess without sinus (principal); F17.210 Nicotine dependence, cigarettes, uncomplicated
CPT/HCPCS: 96372; 99283; S0077

== ENCOUNTER 2021-01-29 08:13 | Emergency (ER) | payer SELFPAY ==
--- NOTE | 2021-01-29 09:02 | EDPHYS ---
Physician Documentation [facility] Name: Jeff Redding II Age: 40 yrs Sex: Male : 1980 Arrival Date: 01/29/2021 Time: 08:15 Bed 19 Private MD: ED Physician Zelalem Cohen HPI: 01/29 09:24 This 40 yrs old Male presents to ER via Ambulatory with complaints of Abscess kb - ruptured. 09:24 The patient presents with an abscess of the lower left first molar (#19). Description: kb draining, erythematous, swollen. Onset: The symptoms/episode began/occurred last week. Possible cause(s): unknown. Associated signs and symptoms: Pertinent positives: drainage, erythema, swelling. Modifying factors: the symptoms are alleviated by nothing, the symptoms are aggravated by nothing. Severity of symptoms: At their worst the symptoms were moderate, in the emergency department the symptoms are unchanged. The patient has not experienced similar symptoms in the past. The patient has been recently seen at the [facility] Emergency Department, yesterday, for similar complaints. Pt reports he was seen here yesterday, diagnosed with an abscess and sent home with clindamycin. States he planned on picking up the prescription after work today. States he was in a meeting and the abscess ruptured. States "a lot of pus came out." Came back to the ED to make sure he could take the antibiotics and follow up with a dentist as planned or find out if he needed to do something different. Denies pain.. Historical: - Allergies: 08:43 No Known Allergies; iw - PMHx: 08:43 Migraines; iw - Immunization history:: Last tetanus immunization: < 5 years ago. - Social history:: Smoking status: Patient reports the use of cigarette tobacco products, denies chronic smoking, but will smoke occasionally. ROS: 09:18 Constitutional: Negative for fever, chills, and weight loss, Respiratory: Negative for kb shortness of breath, cough, wheezing, and pleuritic chest pain, Abdomen/GI: Negative for abdominal pain, nausea, vomiting, diarrhea, and constipation, MS/Extremity: Negative for injury and deformity, Skin: Negative for injury, rash, and discoloration, Neuro: Negative for headache, weakness, numbness, tingling, and seizure. 09:18 ENT: Positive for dental abscess ruptured. Exam: 09:18 Constitutional: This is a well developed, well nourished patient who is awake, alert, kb and in no acute distress. Head/Face: Normocephalic, atraumatic. Respiratory: Respirations even and unlabored. No increased work of breathing, no retractions or nasal flaring. Skin: Warm, dry with normal turgor. Normal color. MS/ Extremity: Pulses equal, no cyanosis. Neurovascular intact. Full, normal range of motion. Neuro: Awake and alert, GCS 15, oriented to person, place, time, and situation. Moves all extremities. Normal gait. Psych: Awake, alert, with orientation to person, place and time. Behavior, mood, and affect are within normal limits. 09:18 ENT: Dental exam: abscess, that is moderate, specifically in the lower left first molar (#19). Vital Signs: 08:41 BP 125 / 76; Pulse 84; Resp 16; Temp 98.4; Pulse Ox 100% on R/A; iw 09:21 BP 103 / 62; Pulse 70; Resp 17; Pulse Ox 97% ; kg MDM: 08:45 Patient medically screened. kb 09:17 Data reviewed: vital signs, nurses notes. Data interpreted: Pulse oximetry: on room air kb is 100 %. Interpretation: normal. Counseling: I had a detailed discussion with the patient and/or guardian regarding: the historical points, exam findings, and any diagnostic results supporting the discharge/admit diagnosis, the need for outpatient follow up, a dentist, to return to the emergency department if symptoms worsen or persist or if there are any questions or concerns that arise at home. 09:22 ED course: Abscess noted to left lower jaw with purulent drainage. pressure applied to kb drain abscess, moderate of purulent discharge drained. Administered Medications: 09:12 Drug: Clindamycin 300 mg Route: PO; kg 09:26 Follow up: Response: No adverse reaction kg Disposition: 15:02 Co-signature as Attending Physician, Zelalem Cohen MD I agree with the assessment and kdr plan of care. Disposition Summary: 01/29/21 09:01 Discharge Ordered Location: Home kb Condition: Stable kb Diagnosis - Periapical abscess without sinus kb Followup: kb - With: Emergency Department - When: As needed - Reason: Worsening of condition Followup: kb - With: Private Physician - When: 2 - 3 days - Reason: Recheck today's complaints, Continuance of care, Re-evaluation by your physician Discharge Instructions: - Discharge Summary Sheet kb - Dental Abscess, [id number] kb Forms: - Medication Reconciliation Form kb - Thank You Letter kb - Antibiotic Education kb - Work release form kb - Prescription Opioid Use kb Signatures: Cathy Weldon FNP-C FNP-Zelalem Rivas MD MD kdr Williams, Irene, RN RN iw Amanda Rodriguez RN RN kg
--- NOTE | 2021-01-29 09:02 | ER ---
Nurse's Notes [facility] Name: Jeff Redding II Age: 40 yrs Sex: Male : 1980 Arrival Date: 01/29/2021 Time: 08:15 Bed 19 Private MD: Diagnosis: Periapical abscess without sinus Presentation: 01/29 08:41 Chief complaint: Patient states: was seen here for abscessed tooth on left lower jaw, iw was prescribed antibiotics and ibuprofen, today was at work and the abscess popped and started draining a lot of pus. Coronavirus screen: At this time, the client does not indicate any symptoms associated with coronavirus-19. Ebola Screen: Patient negative for fever greater than or equal to 101.5 degrees Fahrenheit, and additional compatible Ebola Virus Disease symptoms Patient denies exposure to infectious person. Patient denies travel to an Ebola-affected area in the 21 days before illness onset. No symptoms or risks identified at this time. Initial Sepsis Screen: Does the patient meet any 2 criteria? No. Patient's initial sepsis screen is negative. Does the patient have a suspected source of infection? No. Patient's initial sepsis screen is negative. Risk Assessment: Do you want to hurt yourself or someone else? Patient reports no desire to harm self or others. Onset of symptoms was January 29, 2021. 08:41 Method Of Arrival: Ambulatory iw 08:41 Acuity: ANDREWS 4 iw Historical: - Allergies: 08:43 No Known Allergies; iw - PMHx: 08:43 Migraines; iw - Immunization history:: Last tetanus immunization: < 5 years ago. - Social history:: Smoking status: Patient reports the use of cigarette tobacco products, denies chronic smoking, but will smoke occasionally. Screenin:25 Abuse screen: Denies threats or abuse. Denies injuries from another. Nutritional kg screening: No deficits noted. Tuberculosis screening: No symptoms or risk factors identified. Fall Risk None identified. No fall in past 12 months (0 pts). No secondary diagnosis (0 pts). No IV (0 pts). Ambulatory Aid- None/Bed Rest/Nurse Assist (0 pts). Gait- Normal/Bed Rest/Wheelchair (0 pts) Mental Status- Oriented to own ability (0 pts). Total Murphy Fall Scale indicates No Risk (0-24 pts). Assessment: 09:24 General: Appears in no apparent distress. Behavior is calm, cooperative, appropriate kg for age, quiet. Pain: Complains of pain in left jaw Pain currently is 4 out of 10 on a pain scale. at worst was 6 out of 10 on a pain scale. level that patient reports is acceptable is 3 out of 10 on a pain scale. Quality of pain is described as dull, heavy. Neuro: No deficits noted. Cardiovascular: No deficits noted. Respiratory: No deficits noted. GI: No deficits noted. : No deficits noted. EENT: Poor dentition noted. Dental caries noted in lower left third molar (#17) and lower left second molar (#18). Vital Signs: 08:41 BP 125 / 76; Pulse 84; Resp 16; Temp 98.4; Pulse Ox 100% on R/A; iw 09:21 BP 103 / 62; Pulse 70; Resp 17; Pulse Ox 97% ; kg ED Course: 08:15 Patient arrived in ED. am2 08:43 Triage completed. iw 08:44 Arm band placed on. iw 08:45 [facility] Weldon [facility]C [facility]. kb 08:45 Zelalem Cohen MD is Attending Physician. kb 09:06 Amanda Rodriguez, FLORIN is Primary Nurse. kg 09:26 Patient has correct armband on for positive identification. Bed in low position. Call kg light in reach. Side rails up X 1. 09:26 No provider procedures requiring assistance completed. Patient did not have IV access kg during this emergency room visit. Administered Medications: 09:12 Drug: Clindamycin 300 mg Route: PO; kg 09:26 Follow up: Response: No adverse reaction kg Outcome: 09:01 Discharge ordered by MD. kb 09:26 Discharged to home ambulatory. kg 09:26 Condition: good 09:26 Discharge instructions given to patient, Instructed on discharge instructions, follow up and referral plans. Demonstrated understanding of instructions, follow-up care. 09:26 Patient left the ED. kg Signatures: Cathy Weldon FNP-C FNP-Jessy Panchal, FLORIN RN Domitila Silva am2 Amanda Rodriguez RN RN kg Corrections: (The following items were deleted from the chart) 08:48 08:41 Chief complaint: Patient states: was seen here for abscessed tooth on right lower iw jaw, was prescribed antibiotics and ibuprofen, today was at work and the abscess popped and started draining a lot of pus iw
[2021-01-29 09:33] VITALS: TEMP 98.4
[2021-01-29 09:35] VITALS: BP 103/62; O2SAT 97
== END 2021-01-29 09:26 | disposition home or self-care (01) ==
LOC: ER 08:13
DX: K04.7 Periapical abscess without sinus (principal); F17.210 Nicotine dependence, cigarettes, uncomplicated
CPT/HCPCS: 99283

== ENCOUNTER 2021-02-23 16:10 | Emergency (ER) | payer SELFPAY ==
[2021-02-23] MEDS ORDERED: IBUPROFEN 400 MG TAB ONE (21:12)
--- NOTE | 2021-02-23 21:22 | ER ---
Nurse's Notes [facility] Name: Jeff Redding II Age: 40 yrs Sex: Male : 1980 Arrival Date: 02/23/2021 Time: 16:11 Bed 12 Private MD: Diagnosis: SARS-associated coronavirus as the cause of diseases classified elsewhere Presentation: 02/23 16:27 Chief complaint: Patient states: Tested positive for COVID today, states "I'm gasping jl7 for air.". Coronavirus screen: Client denies travel out of the [place] in the last 14 days. Client presents with at least one sign or symptom that may indicate coronavirus-19. Standard/surgical mask placed on the client. Provider contacted for isolation considerations. Client reports previous positive COVID test result. Date of collection: February 23, 2021. Ebola Screen: No symptoms or risks identified at this time. Initial Sepsis Screen: Does the patient meet any 2 criteria? No. Patient's initial sepsis screen is negative. Does the patient have a suspected source of infection? No. Patient's initial sepsis screen is negative. Risk Assessment: Do you want to hurt yourself or someone else? Patient reports no desire to harm self or others. Onset of symptoms was February 20, 2021. Care prior to arrival: None. 16:27 Method Of Arrival: Ambulatory [facility] 16:27 Acuity: ANDREWS 4 jl7 Triage Assessment: 16:30 General: Appears in no apparent distress. comfortable, Behavior is calm, cooperative, jl7 appropriate for age. Pain: Denies pain. Neuro: Level of Consciousness is awake, alert, obeys commands. Cardiovascular: Patient's skin is warm and dry. Respiratory: Airway is patent Respiratory effort is even, unlabored, Respiratory pattern is regular, symmetrical. Historical: - Allergies: 16:30 No Known Allergies; jl7 - PMHx: 16:30 Migraines; jl7 - Immunization history:: Adult Immunizations not immunized, Client reports having NOT received the Covid vaccine. - Social history:: Smoking status: Patient reports the use of cigarette tobacco products. Screenin:00 Abuse screen: Denies threats or abuse. Nutritional screening: No deficits noted. bb Tuberculosis screening: No symptoms or risk factors identified. Fall Risk None identified. Assessment: 20:00 General: Appears in no apparent distress. Behavior is calm, cooperative. Neuro: Level bb of Consciousness is awake, alert, obeys commands, Oriented to person, place, time, situation. Cardiovascular: Capillary refill < 3 seconds Patient's skin is warm and dry. Respiratory: Airway is patent Respiratory effort is even, unlabored, Respiratory pattern is regular. GI: No signs and/or symptoms were reported involving the gastrointestinal system. Derm: Skin is pink, warm \\T\\ dry. Musculoskeletal: Circulation, motion, and sensation intact. 21:39 Reassessment: Patient is alert, oriented x 3, equal unlabored respirations, skin bb warm/dry/pink. pt verbalized understanding of and agrees to plan of care discharge instructions given pt ambulated with steady gait to exit. Vital Signs: 16:27 Pulse 78; Resp 14; Temp 100.1; Pulse Ox 99% ; Weight 74.84 kg; Height 6 ft. 5 in. jl7 (195.58 cm); 16:27 BP 105 / 60; jl7 21:40 BP 109 / 65; Pulse 68; Resp 16 S; Temp 97.4(O); Pulse Ox 96% on R/A; bb 16:27 Body Mass Index 19.57 (74.84 kg, 195.58 cm) jl7 ED Course: 16:11 Patient arrived in ED. ds1 16:30 Triage completed. jl7 16:30 Arm band placed on right wrist. Patient placed in waiting room, Patient notified of jl7 wait time. 16:38 Leo Watts PA is PHCP. cp 16:38 Leo Maxwell MD is Attending Physician. cp 20:49 Kylah Bentley, RN is Primary Nurse. bb 20:49 Chest Single View In Process Unspecified. EDMS 21:41 Patient has correct armband on for positive identification. bb 21:41 No provider procedures requiring assistance completed. Patient did not have IV access bb during this emergency room visit. Administered Medications: 20:54 Drug: Ibuprofen 800 mg Route: PO; bb 21:41 Follow up: Response: No adverse reaction bb Outcome: 21:21 Discharge ordered by . cp 21:41 Discharged to home ambulatory. bb 21:41 Condition: stable 21:41 Discharge instructions given to patient, Instructed on discharge instructions, follow up and referral plans. medication usage, Demonstrated understanding of instructions, follow-up care, medications, Prescriptions given X 1. 21:42 Patient left the ED. bb Signatures: Dispatcher [employer] EDAZ Elana Cox ds1 Kylah Bentley RN RN bb Leo Watts PA PA cp Leal, Jahala RN RN jl7
--- NOTE | 2021-02-23 21:23 | EDPHYS ---
Physician Documentation [facility] Name: Jeff Redding II Age: 40 yrs Sex: Male : 1980 Arrival Date: 02/23/2021 Time: 16:11 Bed 12 Private MD: ED Physician Leo Maxwell HPI: 02/23 20:43 This 40 yrs old Male presents to ER via Ambulatory with complaints of Covid+ cp SOB. 20:45 The patient or guardian reports cough, that is intermittent, shortness of breath. cp 20:45 Onset: The symptoms/episode began/occurred 3 day(s) ago. Associated signs and symptoms: cp Pertinent positives: sore throat, Pertinent negatives: chest pain, diarrhea, fever, vomiting. Severity of symptoms: in the emergency department the symptoms are unchanged despite home interventions. Patient reports having positive test results for COVID-19 return today. Believes he was exposed to virus at work. Several co-workers tested positive recently. Historical: - Allergies: 16:30 No Known Allergies; jl7 - PMHx: 16:30 Migraines; jl7 - Immunization history:: Adult Immunizations not immunized, Client reports having NOT received the Covid vaccine. - Social history:: Smoking status: Patient reports the use of cigarette tobacco products. ROS: 20:50 Cardiovascular: Negative for chest pain, edema, palpitations. cp 20:50 Eyes: Negative for injury, pain, redness, and discharge. cp 20:50 Constitutional: Positive for body aches, Negative for fever, poor PO intake. 20:50 ENT: Positive for sore throat, Negative for drainage from ear(s), ear pain, difficulty swallowing, difficulty handling secretions. 20:50 Neck: Negative for pain with movement, pain at rest, stiffness. 20:50 Respiratory: Positive for cough, shortness of breath, Negative for wheezing. 20:50 Abdomen/GI: Negative for abdominal pain, nausea, vomiting, and diarrhea, constipation. 20:50 Skin: Negative for cellulitis, rash. 20:50 Neuro: Negative for altered mental status, headache, syncope, weakness. 20:50 All other systems are negative. Exam: 20:55 Constitutional: The patient appears in no acute distress, alert, awake, cp non-diaphoretic, non-toxic, well developed, well nourished. 20:55 Head/Face: Normocephalic, atraumatic. cp 20:55 Eyes: Periorbital structures: appear normal, Conjunctiva: normal, no exudate, no injection, Sclera: no appreciated abnormality, Lids and lashes: appear normal, bilaterally. 20:55 ENT: External ear(s): are unremarkable, Ear canal(s): are normal, clear, TM's: dullness, bilaterally, Nose: is normal, Mouth: Lips: moist, Oral mucosa: pink and intact, moist, Posterior pharynx: Airway: no evidence of obstruction, patent. 20:55 Neck: ROM/movement: is normal, is supple, without pain, no range of motions limitations, no meningismus. 20:55 Chest/axilla: Inspection: normal, Palpation: is normal, no crepitus, no tenderness. 20:55 Cardiovascular: Rate: normal, Rhythm: regular. 20:55 Respiratory: the patient does not display signs of respiratory distress, Respirations: normal, no use of accessory muscles, no retractions, labored breathing, is not present. 20:55 Abdomen/GI: Exam negative for discomfort, distension, guarding, Inspection: abdomen cp appears normal. 20:55 Back: pain, is absent, ROM is normal. Vital Signs: 16:27 Pulse 78; Resp 14; Temp 100.1; Pulse Ox 99% ; Weight 74.84 kg; Height 6 ft. 5 in. jl7 (195.58 cm); 16:27 BP 105 / 60; jl7 21:40 BP 109 / 65; Pulse 68; Resp 16 S; Temp 97.4(O); Pulse Ox 96% on R/A; bb 16:27 Body Mass Index 19.57 (74.84 kg, 195.58 cm) jl7 MDM: 19:49 Patient medically screened. cp 21:00 Differential diagnosis: bronchitis, flu, URI, pneumonia. cp 21:21 Antibiotic administration: Not indicated, the patient has a suspected viral illness. cp Data reviewed: vital signs, nurses notes, radiologic studies. 21:21 Test interpretation: by ED physician or midlevel provider: plain radiologic studies. cp Counseling: I had a detailed discussion with the patient and/or guardian regarding: the historical points, exam findings, and any diagnostic results supporting the discharge/admit diagnosis, radiology results, to return to the emergency department if symptoms worsen or persist or if there are any questions or concerns that arise at home. ED course: VSS. Patient appears non-toxic and no signs of respiratory distress. Will discharge to home with instructions to quarantine for 10 days from symptom onset. Patient given return precautions. 02/23 20:39 Order name: Chest Single View EDMS Administered Medications: 20:54 Drug: Ibuprofen 800 mg Route: PO; bb 21:41 Follow up: Response: No adverse reaction bb Disposition: 02/24 07:36 Co-signature as Attending Physician, Leo Maxwell MD I agree with the assessment and kylie plan of care. Disposition Summary: 02/23/21 21:21 Discharge Ordered Location: Home cp Problem: new cp Symptoms: are unchanged cp Condition: Stable cp Diagnosis - SARS-associated coronavirus as the cause of diseases classified elsewhere cp Followup: cp - With: Private Physician - When: 2 - 3 days - Reason: Worsening of condition Discharge Instructions: - Discharge Summary Sheet cp - COVID-19 cp - Things to Know about the COVID-19 Pandemic - [facility] cp - 10 Things You Can Do to Manage Your COVID-19 Symptoms at Home - [facility] cp - COVID-19: Quarantine vs. Isolation - [facility] cp - Prevent the Spread of COVID-19 if You Are Sick - [facility] cp Forms: - Medication Reconciliation Form cp - Thank You Letter cp - Antibiotic Education cp - Prescription Opioid Use cp - Work release form cp Prescriptions: - Tessalon Perles 100 mg Oral Capsule - take 2 capsule by ORAL route every 8 hours As needed; 30 capsule; Refills: 0, cp Product Selection Permitted Signatures: Dispatcher [employer] EDLeo Barker MD MD cha Ballard, Brenda, RN RN Leo Lozano PA PA cp Aisha Dawn, FLORIN RN jl7 Corrections: (The following items were deleted from the chart) 02/23 20:39 20:13 Chest Pa And Lat (2 Views)+RAD.RAD.[email or web address] ordered. EDOH EDMS
[2021-02-23 21:51] VITALS: BP 109/65; TEMP 97.4; O2SAT 96
--- NOTE | 2021-02-23 21:54 | RAD REPORT ---
EXAM DESCRIPTION: RAD - Chest Single View - 02/23/2021 8:49 pm CLINICAL HISTORY: COUGH COMPARISON: No comparisons FINDINGS: No evidence of edema or pneumonia. The heart size is within normal limits.No acute osseous abnormality. No significant pleural effusions or pneumothorax. IMPRESSION: No acute cardiopulmonary disease.
== END 2021-02-23 21:42 | disposition home or self-care (01) ==
LOC: ER 16:10
DX: U07.1 COVID-19 (principal); Z72.0 Tobacco use
CPT/HCPCS: 71045; 99283

== ENCOUNTER 2021-09-06 09:54 | Emergency (ER) | payer BC ==
[2021-09-06] MEDS ORDERED: LIDOCAINE 1% MPF 5 ML VIAL ONE (10:47)
[2021-09-06] MEDS ORDERED: HYDROCODONE/APAP 10/325 TAB ONE (10:48)
--- NOTE | 2021-09-06 12:12 | EDPHYS ---
Physician Documentation [facility] Name: Jeff Redding II Age: 41 yrs Sex: Male : 1980 Arrival Date: 09/06/2021 Time: 09:57 Bed 14 Private MD: ED Physician Alcides Ahn HPI: 09/06 10:38 This 41 yrs old Male presents to ER via Ambulatory with complaints of Toothache, Facial pm1 Swelling. 10:38 The patient presents with pain, swelling. The problem is located in the left jaw. pm1 Onset: The symptoms/episode began/occurred 1 week(s) ago. Duration: The symptoms are continuous. Modifying factors: The symptoms are alleviated by nothing, the symptoms are aggravated by nothing. Associated signs and symptoms: Pertinent negatives: fever, inability to eat. Severity of symptoms: in the emergency department the symptoms are actually worse. The patient has experienced similar episodes in the past, multiple times. The patient has been recently seen at the [facility], last week, for similar complaints was given a prescription for antibiotics. Historical: - Allergies: 10:11 No Known Allergies; ab2 - Home Meds: 10:11 None [Active]; ab2 - PMHx: 10:11 Migraines; Asthma; ab2 - Immunization history:: Adult Immunizations up to date, Client reports having NOT received the Covid vaccine. - Social history:: Smoking status: Patient reports the use of cigarette tobacco products, denies chronic smoking, but will smoke occasionally. ROS: 10:38 Constitutional: Negative for fever, chills, and weight loss. pm1 10:38 Neck: Negative for injury, pain, and swelling, Cardiovascular: Negative for chest pain, palpitations, and edema, Respiratory: Negative for shortness of breath, cough, wheezing, and pleuritic chest pain, Abdomen/GI: Negative for abdominal pain, nausea, vomiting, diarrhea, and constipation, MS/Extremity: Negative for injury and deformity, Skin: Negative for injury, rash, and discoloration, Neuro: Negative for headache, weakness, numbness, tingling, and seizure. 10:38 ENT: Positive for dental pain, Negative for sore throat, difficulty swallowing, difficulty handling secretions, hoarseness. 10:38 All other systems are negative. Exam: 10:38 Constitutional: This is a well developed, well nourished patient who is awake, alert, pm1 and in no acute distress. Head/Face: Normocephalic, atraumatic. 10:38 MS/ Extremity: Pulses equal, no cyanosis. Neurovascular intact. Full, normal range of motion. 10:38 ENT: Mouth: no acute changes, Lips: normal, moist, Oral mucosa: normal, pink and intact, moist, Dental exam: abscess, specifically in the left jaw, cellulitis, is not appreciated, dental caries, that is moderate, specifically in the lower left second molar (#18) and lower left first molar (#19), gum swelling, that is mild, specifically in the lower left second molar (#18) and lower left first molar (#19). 10:38 Cardiovascular: Exam negative for acute changes, Rate: normal, Rhythm: regular, Pulses: no pulse deficits are appreciated. 10:38 Respiratory: Exam negative for acute changes, respiratory distress, shortness of breath. 10:38 Skin: Appearance: normal except for affected area, abscess, that is small, approximately 2 cm(s), of the left jaw, with drainage, with fluctuance, no surrounding cellulitis. 10:38 Neuro: Exam negative for acute changes, Orientation: is normal, Mentation: is normal, Motor: is normal, moves all fours. Vital Signs: 10:07 BP 134 / 62; Pulse 102; Resp 18; Temp 98.2(O); Pulse Ox 97% on R/A; Weight 77.11 kg; ab2 Height 6 ft. 5 in. (195.58 cm); Pain 10/10; 12:00 BP 127 / 66; Pulse 86; Resp 18; Pulse Ox 100% ; Pain 4/10; jh6 10:07 Body Mass Index 20.16 (77.11 kg, 195.58 cm) ab2 Procedures: 12:12 I \T\ D: Incision and drainage was performed for an abscess of the left left jaw Prepped pm1 with Betadine, Anesthetized with 3 ml's 1% Lidocaine. Incised with needle aspiration with 18 gauge needle and then expressed manually. Drained small amount purulent fluid. the patient tolerated the procedure well. MDM: 10:21 Patient medically screened. pm1 12:06 Data reviewed: vital signs. Data interpreted: Pulse oximetry: on room air is 97 %. pm1 Interpretation: normal. 12:12 Counseling: I had a detailed discussion with the patient and/or guardian regarding: the pm1 historical points, exam findings, and any diagnostic results supporting the discharge/admit diagnosis, the need for outpatient follow up, for definitive care, a dentist, an oral maxilofacial specialist, to return to the emergency department if symptoms worsen or persist or if there are any questions or concerns that arise at home, Discussed ABX therapy with attending and recommended Bactrim to take with the remainder of his clindamycin. 12:15 ED course: [place]. pm1 Administered Medications: 10:55 Drug: [place] (HYDROcodone-acetaminophen) 10 mg-325 mg 1 tabs Route: PO; [facility] 11:18 Follow up: Response: No adverse reaction [facility] 11:37 Drug: Lidocaine (1 %) 5 ml Volume: 5 ml; Route: Infiltration; [facility] Disposition: 17:00 Co-signature as Attending Physician, Alcides Ahn MD I agree with the assessment and rn plan of care. Attestation: The patient's history, exam findings, diagnostics, and a summary of any interventions or procedures was reviewed in detail with Danis Stovall NP. Disposition Summary: 09/06/21 12:12 Discharge Ordered Location: Home pm1 Problem: new pm1 Symptoms: have improved pm1 Condition: Stable pm1 Diagnosis - Periapical abscess with sinus pm1 Followup: pm1 - With: Emergency Department - When: As needed - Reason: Worsening of condition Followup: pm1 - With: Private Physician - When: 2 - 3 days - Reason: Recheck today's complaints, Continuance of care, Re-evaluation by your physician Discharge Instructions: - Discharge Summary Sheet pm1 - Dental Abscess pm1 Forms: - Medication Reconciliation Form pm1 - Thank You Letter pm1 - Antibiotic Education pm1 - Prescription Opioid Use pm1 Prescriptions: - Bactrim DS 800-160 mg Oral Tablet - take 1 tablet by ORAL route every 12 hours for 10 days; 20 tablet; Refills: 0, pm1 Product Selection Permitted - Tramadol 50 mg Oral Tablet - take 1 tablet by ORAL route every 8 hours as needed; 12 tablet; Refills: 0, pm1 Product Selection Permitted Signatures: Alcides Ahn MD MD rn Marinas, Patrick, NP [employer] pm1 Faina Burns RN RN [facility] Zach Wylie ab2
--- NOTE | 2021-09-06 12:12 | ER ---
Nurse's Notes [facility] Name: Jeff Redding II Age: 41 yrs Sex: Male : 1980 Arrival Date: 09/06/2021 Time: 09:57 Bed 14 Private MD: Diagnosis: Periapical abscess with sinus Presentation: 09/06 10:07 Chief complaint: Patient states: "I have an abscess that needs opened up. I was here 2 ab2 weeks ago for the same thing and they gave me abx, but they are not helping. The dentist wont see me until the infection is gone.". Coronavirus screen: Vaccine status: Patient reports being unvaccinated. Client denies travel out of the [place] in the last 14 days. At this time, the client does not indicate any symptoms associated with coronavirus-19. Ebola Screen: Patient negative for fever greater than or equal to 101.5 degrees Fahrenheit, and additional compatible Ebola Virus Disease symptoms Patient denies exposure to infectious person. Patient denies travel to an Ebola-affected area in the 21 days before illness onset. No symptoms or risks identified at this time. Initial Sepsis Screen: Does the patient meet any 2 criteria? HR > 90 bpm. No. Patient's initial sepsis screen is negative. Does the patient have a suspected source of infection? Yes:. Risk Assessment: Do you want to hurt yourself or someone else? Patient reports no desire to harm self or others. Onset of symptoms is unknown. 10:07 Method Of Arrival: Ambulatory ab2 10:07 Acuity: ANDREWS 3 ab2 Triage Assessment: 10:11 General: Appears in no apparent distress. comfortable, Behavior is calm, cooperative, ab2 appropriate for age. Pain: Complains of pain in left jaw Pain does not radiate. Pain currently is 10 out of 10 on a pain scale. EENT: Reports pain in left jaw. Historical: - Allergies: 10:11 No Known Allergies; ab2 - Home Meds: 10:11 None [Active]; ab2 - PMHx: 10:11 Migraines; Asthma; ab2 - Immunization history:: Adult Immunizations up to date, Client reports having NOT received the Covid vaccine. - Social history:: Smoking status: Patient reports the use of cigarette tobacco products, denies chronic smoking, but will smoke occasionally. Screenin:42 Abuse screen: Denies threats or abuse. Nutritional screening: No deficits noted. jh6 Tuberculosis screening: No symptoms or risk factors identified. Fall Risk None identified. Assessment: 10:42 General: Appears uncomfortable, Behavior is calm, cooperative. Pain: Complains of pain jh6 in left jaw Pain currently is 8 out of 10 on a pain scale. Quality of pain is described as throbbing, gnawing, Is continuous. 12:00 Reassessment: Patient is alert, oriented x 3, equal unlabored respirations, skin jh6 warm/dry/pink. MINE SUPERVISOR able to drain moderate amount of pus from needle puncture to outside l lower chin, pt tolerated well . Patient states feeling better. 12:00 Pain: Complains of pain in left jaw Pain currently is 3 out of 10 on a pain scale. Is jh6 continuous. Vital Signs: 10:07 BP 134 / 62; Pulse 102; Resp 18; Temp 98.2(O); Pulse Ox 97% on R/A; Weight 77.11 kg; ab2 Height 6 ft. 5 in. (195.58 cm); Pain 10/10; 12:00 BP 127 / 66; Pulse 86; Resp 18; Pulse Ox 100% ; Pain 4/10; jh6 10:07 Body Mass Index 20.16 (77.11 kg, 195.58 cm) ab2 ED Course: 09:57 Patient arrived in ED. as 10:11 Triage completed. ab2 10:12 Arm band placed on left wrist. ab2 10:14 Danis Stovall NP is PHCP. pm1 10:14 Alcides Ahn MD is Attending Physician. pm1 10:30 Faina Burns, FLORIN is Primary Nurse. jh6 10:42 Bed in low position. Call light in reach. Side rails up X 1. jh6 11:50 Assist provider with I \\T\\ D: of an abscess on left lt mandible area. jh6 12:42 Patient did not have IV access during this emergency room visit. jh6 Administered Medications: 10:55 Drug: Rupert (HYDROcodone-acetaminophen) 10 mg-325 mg 1 tabs Route: PO; 6 11:18 Follow up: Response: No adverse reaction 6 11:37 Drug: Lidocaine (1 %) 5 ml Volume: 5 ml; Route: Infiltration; 6 Outcome: 12:12 Discharge ordered by . pm1 12:42 Discharged to home ambulatory. jh6 12:42 Condition: good 12:42 Discharge instructions given to patient, Instructed on discharge instructions, follow up and referral plans. Demonstrated understanding of instructions, follow-up care, medications, Prescriptions given X 2. 12:43 Patient left the ED. 6 Signatures: Catalina Augustin Patrick, BEVERLEY MINE SUPERVISOR pm1 Faina Burns, RN RN 6 Zach Wylie ab2
[2021-09-06 12:48] VITALS: TEMP 98.2
[2021-09-06 12:49] VITALS: BP 127/66; O2SAT 100
== END 2021-09-06 12:43 | disposition home or self-care (01) ==
LOC: ER 09:54
PROC: 0C96XZZ Drainage of Lower Gingiva, External Approach (ICD-10-PCS; principal; 2021-09-06)
DX: K04.6 Periapical abscess with sinus (principal); F17.210 Nicotine dependence, cigarettes, uncomplicated
CPT/HCPCS: 99283

== ENCOUNTER 2024-07-25 09:48 | Emergency (ER) | payer SELFPAY ==
--- NOTE | 2024-07-25 10:22 | RAD REPORT ---
Exam:Wrist Left 3 View HISTORY: Left wrist pain FINDINGS: No fracture or dislocation seen. If the patient continues to have symptoms to suggest an occult fracture then follow-up x-ray in 7 day s would be recommended
--- NOTE | 2024-07-25 10:27 | EDPHYS ---
Physician Documentation [facility] Name: Jeff Redding II Age: 44 yrs Sex: Male : 1980 Arrival Date: 07/25/2024 Time: 09:48 Bed 20 Private MD: ED Physician Alcides Ahn HPI: 07/25 10:07 This 44 yrs old Male presents to ER via Ambulatory with complaints of Wrist Injury. rn 10:07 The patient or guardian reports injury, pain. The complaints affect the left wrist rn diffusely. Onset: The symptoms/episode began/occurred yesterday. Modifying factors: The symptoms are alleviated by elevation, holding still, the symptoms are aggravated by movement. Associated signs and symptoms: Pertinent negatives: cyanosis distally, decreased sensation distally, numbness distally, tingling distally. The patient has experienced a previous episode. Pt reports fell from 3rd rung of ladder yesterday, tried to catch himself when he fell, injured left wrist. No other injury. Has broken left wrist before. . Historical: - Allergies: 09:59 tramadol; iw - PMHx: 09:59 Asthma; Migraines; iw - Immunization history:: Adult Immunizations not up to date. - Infectious Disease History:: Denies. - Social history:: Smoking status: Patient reports the use of cigarette tobacco products, denies chronic smoking, but will smoke occasionally. - Family history:: not pertinent. - Hospitalizations: : No recent hospitalization is reported. ROS: 10:07 Constitutional: Negative for fever, chills, and weight loss, MS/Extremity: + left wrist rn injury and pain Skin: Negative for injury, rash, and discoloration, Neuro: Negative for headache, weakness, numbness, tingling, and seizure, Exam: 10:07 Constitutional: This is a well developed, well nourished patient who is awake, alert, rn and in no acute distress. MS/ Extremity: Pulses equal, no cyanosis. Neurovascular intact. Full, normal range of motion. Equal circumference. + mild left wrist tenderness without gross deformity. No significant swelling. No ecchymosis. Vital Signs: 09:57 Pulse 72; Resp 16; Temp 97.3; Weight 79.38 kg; Height 6 ft. 6 in. ; Pain 7/10; iw 10:36 BP 110 / 71; Pulse 72; Resp 16; Pulse Ox 99% on R/A; iw 09:57 Body Mass Index 20.22 (79.38 kg, 198.12 cm) iw 09:57 Pain Scale: Adult iw MDM: 09:55 Medical Screening Exam initiated rn 10:25 Differential diagnosis: closed fracture, contusion, sprain. Data reviewed: vital signs, rn nurses notes, radiologic studies, plain films, and as a result, I will discharge patient. Independent interpretation of the following test(s) in the Emergency Department X-Ray: My interpretation is Xray left wrist images negative for fracture/dislocation per my interpretation. . Counseling: I had a detailed discussion with the patient and/or guardian regarding the historical points, exam findings, and any diagnostic results supporting the discharge/admit diagnosis, radiology results, the need for outpatient follow up, to return to the emergency department if symptoms worsen or persist or if there are any questions or concerns that arise at home. Special discussion: I discussed with the patient/guardian in detail that at this point there is no indication for admission to the hospital. It is understood, however, that if the symptoms persist or worsen the patient needs to return immediately for re-evaluation. ED course: Xray neg, will splint in wrist brace, and return precautions/need for repeat imaging given and understood. . 07/25 10:00 Order name: XRAY Wrist LEFT 3 view; Complete Time: 10:22 rn 07/25 10:25 Order name: Splint - Wrist: velcro wrist brace; Complete Time: 10:36 rn Administered Medications: No medications were administered Disposition Summary: 07/25/24 10:27 Discharge Ordered Notes: Location: Home rn Problem: new rn Symptoms: have improved rn Condition: Stable rn Diagnosis - Sprain of unspecified part of left wrist and hand rn - Contusion of left wrist rn Followup: rn - With: Private Physician - When: As needed - Reason: Recheck today's complaints, Re-evaluation by your physician Discharge Instructions: - Discharge Summary Sheet rn - Wrist Pain, Adult rn - Wrist Splint or Brace, Adult rn - Wrist Sprain, Adult rn Forms: - Medication Reconciliation Form rn - Antibiotic rn perioperative - Prescription Opioid Use rn - Patient Portal Instructions rn - Leadership Thank You Letter rn Signatures: Dispatcher [employer] Jessy Daniel RN RN iw Ahn, Alcides, MD MD rn
--- NOTE | 2024-07-25 10:27 | ER ---
Nurse's Notes [facility] Name: Jeff Redding II Age: 44 yrs Sex: Male : 1980 Arrival Date: 07/25/2024 Time: 09:48 Bed 20 Private MD: Diagnosis: Sprain of unspecified part of left wrist and hand;Contusion of left wrist Presentation: 07/25 09:57 Chief complaint: Patient states: slipped off the third rung of a ladder fell on his iw wrist, injured his left wrist. Coronavirus screen: At this time, the client does not indicate any symptoms associated with coronavirus-19. Ebola Screen: No symptoms or risks identified at this time. Initial Sepsis Screen: Does the patient meet any 2 criteria? No. Patient's initial sepsis screen is negative. Does the patient have a suspected source of infection? No. Patient's initial sepsis screen is negative. Risk Assessment: Do you want to hurt yourself or someone else? Patient reports no desire to harm self or others. Onset of symptoms was July 24, 2024. 09:57 Method Of Arrival: Ambulatory iw 09:57 Acuity: ANDREWS 4 iw Historical: - Allergies: 09:59 tramadol; iw - PMHx: 09:59 Asthma; Migraines; iw - Immunization history:: Adult Immunizations not up to date. - Infectious Disease History:: Denies. - Social history:: Smoking status: Patient reports the use of cigarette tobacco products, denies chronic smoking, but will smoke occasionally. - Family history:: not pertinent. - Hospitalizations: : No recent hospitalization is reported. Screenin:11 [facility] ED Fall Risk Assessment (Adult) History of falling in the last 3 months, iw including since admission Yes- single mechanical fall (1 pt) Confusion or Disorientation No (0 pts) Intoxicated or Sedated No (0 pts) Impaired Gait No (0 pts) Mobility Assist Device Used No (0 pt) Altered Elimination No (0 pt) Score/Fall Risk Level 0 - 2 = Low Risk Oriented to surroundings, Maintained a safe environment. Abuse screen: Denies threats or abuse. Nutritional screening: No deficits noted. Tuberculosis screening: No symptoms or risk factors identified. Assessment: 10:09 General: Appears in no apparent distress. Behavior is calm, cooperative. Pain: iw Complains of pain in left wrist. Neuro: Level of Consciousness is awake, alert, obeys commands, Oriented to person, place, time, situation. Cardiovascular: Patient's skin is warm and dry. Respiratory: Respiratory effort is even, unlabored, Respiratory pattern is regular. Derm: Skin is intact, is healthy with good turgor. Musculoskeletal: Range of motion: limited in left wrist. Vital Signs: 09:57 Pulse 72; Resp 16; Temp 97.3; Weight 79.38 kg; Height 6 ft. 6 in. ; Pain 7/10; iw 10:36 BP 110 / 71; Pulse 72; Resp 16; Pulse Ox 99% on R/A; iw 09:57 Body Mass Index 20.22 (79.38 kg, 198.12 cm) iw 09:57 Pain Scale: Adult iw ED Course: 09:52 Patient arrived in ED. im 09:55 Alcides Ahn MD is Attending Physician. rn 09:59 Triage completed. iw 09:59 Arm band placed on. iw 10:09 Jessy Thomas RN is Primary Nurse. iw 10:17 XRAY Wrist LEFT 3 view In Process Unspecified. EDMS 10:37 Patient has correct armband on for positive identification. Provided Education on: . iw 10:37 No provider procedures requiring assistance completed. Patient did not have IV access iw during this emergency room visit. Velcro wrist splint applied to left wrist. Administered Medications: No medications were administered Medication: 10:10 VIS not applicable for this client. iw Outcome: 10:27 Discharge ordered by . rn 10:37 Discharged to home ambulatory, iw 10:37 Condition: good 10:37 Discharge instructions given to patient, Instructed on discharge instructions, follow up and referral plans. Demonstrated understanding of instructions, follow-up care, 10:37 Patient left the ED. iw Signatures: Dispatcher [employer] EDJessy Ba RN RN iw Alcides Ahn MD MD rn Mendoza, Itzel im Corrections: (The following items were deleted from the chart) 10:00 09:57 Resp 16bpm; Temp 97.3F; iw iw
[2024-07-25 10:43] VITALS: TEMP 97.3
[2024-07-25 10:45] VITALS: BP 110/71; O2SAT 99
== END 2024-07-25 10:37 | disposition home or self-care (01) ==
LOC: ER 09:48
DX: S63.92XA Sprain of unspecified part of left wrist and hand, initial encounter (principal)
CPT/HCPCS: 99283